=== PATIENT | female | born 1965 ===

== ENCOUNTER 2020-08-31 12:35 | Emergency (ER) | payer BC, OTHER ==
[2020-08-31] MEDS: methylPREDNISolone Sodium Succinate 40 MG/1 ML SDV IM ONE (12:50)
--- NOTE | 2020-08-31 12:53 | EDM.PDOC ---
ED HPI GENERAL MEDICAL PROBLEM - General Chief Complaint: General Stated Complaint: hives Time Seen by Provider: 08/31/20 12:43 Source of Information: Reports: Patient History Limitations: Reports: No Limitations - History of Present Illness INITIAL COMMENTS - FREE TEXT/NARRATIVE: presented to the ER with a c/o hives all over her body started yesterday, admit taking amoxicillin for a finger wound 7 days ago. + itching no SOB tried Benadryl with minimal relief Onset: Sudden Duration: Day(s): (1) ED ROS GENERAL - Review of Systems Review Of Systems: See Below Constitutional: Reports: No Symptoms HEENT: Reports: No Symptoms Respiratory: Reports: No Symptoms Cardiovascular: Reports: No Symptoms GI/Abdominal: Reports: No Symptoms Skin: Reports: Pruritis, Rash Psychiatric: Reports: No Symptoms ED EXAM, GENERAL - Physical Exam Exam: See Below Exam Limited By: No Limitations General Appearance: Alert, WD/WN, No Apparent Distress Head: Atraumatic Respiratory/Chest: No Respiratory Distress, Lungs Clear Cardiovascular: Normal Peripheral Pulses, Regular Rate, Rhythm GI/Abdominal: Normal Bowel Sounds, Soft Neurological: Alert, Oriented, No Motor/Sensory Deficits Skin Exam: Rash Course - Re-Assessments/Exams Free Text/Narrative Re-Assessment/Exam: 08/31/20 12:50 IM solumedrol 40mg was given a prescription of medrol dose pack will be provided Departure - Departure Time of Disposition: 12:51 Disposition: Home, Self-Care 01 Condition: Good Clinical Impression: Full body hives - Discharge Information *PRESCRIPTION DRUG MONITORING PROGRAM REVIEWED*: Not Applicable *COPY OF PRESCRIPTION DRUG MONITORING REPORT IN PATIENT MOOKIE: Not Applicable Referrals: Alexa Jorge MD [Primary Care Provider] - - Problem List & Annotations (1) Full body hives SNOMED Code(s): 843614984 Code(s): L50.9 - URTICARIA, UNSPECIFIED Status: Acute Priority: Low - Problem List Review Problem List Initiated/Reviewed/Updated: Yes - Assessment/Plan Plan: - stop taking amoxicillin - start using prednisone as prescribed - you can Benadryl as needed for itching - drink plenty of fluids - return to the ER if symptoms got worse or any concerns
== END 2020-08-31 13:10 | disposition home or self-care (01) ==
LOC: SUPCPDRO 12:35 → LB.ED 12:35
DX: L50.9 Urticaria, unspecified (principal)
CPT/HCPCS: 96372; 99282; J2920